=== PATIENT | female | born 1985 | race Caucasian/White ===

== ENCOUNTER 2017-02-23 16:53 | Emergency (ER) | payer MEDICAID ==
[~2017-02-23] VITALS: Ht 165.1 cm; Wt 91.2 kg
[~2017-02-23 16:53] MED LIST: AMOX1TAB64 PO; CEFU250T PO; DOCU-30 PO; HYDR-3307 PO
[2017-02-23] MEDS ORDERED: PROPARACAINE OPHTH 0.5%, 15ML ONE ×3 (17:07→17:50)
[2017-02-23] MEDS ORDERED: FLUORESCEIN OPHTHALMIC 1 MG STRIP ONE ×3 (17:07→17:51)
[2017-02-23] MEDS ORDERED: FLUORESCEIN OPHTHALMIC 1 MG STRIP EACHEYE ONE (17:30)
[2017-02-23] MEDS ORDERED: OXYcodone/APAP 5/325MG TABLET PO ONE (17:30)
[2017-02-23] MEDS ORDERED: ONDANSETRON ODT 4 MG PO ONE (17:30)
[2017-02-23] MEDS ORDERED: PROPARACAINE OPHTH 0.5%, 15ML EACHEYE ONE (17:30)
[2017-02-23 19:01] LABS: PATH.CAST-FLAG NOT PRESENT; SPERM-FLAG NOT PRESENT; SRC-FLAG NOT PRESENT; XTAL-FLAG NOT PRESENT; YLC-FLAG NOT PRESENT
[2017-02-23 19:31] VITALS: BP 117/58
== END 2017-02-23 19:32 | disposition home or self-care (01) ==
LOC: ED 18:50
DX: O23.12 Infections of bladder in pregnancy, second trimester (principal); H18.823 Corneal disorder due to contact lens, bilateral; Z3A.22 22 weeks gestation of pregnancy; X58.XXXA Exposure to other specified factors, initial encounter; Y93.89 Activity, other specified; Y99.8 Other external cause status; Y92.009 Unspecified place in unspecified non-institutional (private) residence as the place of occurrence of the external cause
CPT/HCPCS: 81001; 87077; 87086; 87186; 99284

== ENCOUNTER 2017-02-24 19:01 | Emergency (ER) | payer MEDICAID ==
[~2017-02-24] VITALS: Ht 165.1 cm; Wt 90.3 kg
[2017-02-24] MEDS ORDERED: PROPARACAINE OPHTH 0.5%, 15ML ONE (19:39)
[2017-02-24] MEDS ORDERED: FLUORESCEIN OPHTHALMIC 1 MG STRIP ONE (19:39)
[2017-02-24 20:12] VITALS: BP 115/74
== END 2017-02-24 20:15 | disposition home or self-care (01) ==
LOC: ED 19:30
DX: S05.02XD Injury of conjunctiva and corneal abrasion without foreign body, left eye, subsequent encounter (principal); S05.01XD Injury of conjunctiva and corneal abrasion without foreign body, right eye, subsequent encounter; X58.XXXD Exposure to other specified factors, subsequent encounter
CPT/HCPCS: 99283

== ENCOUNTER 2017-02-25 21:07 | Emergency (ER) | payer MEDICAID ==
[~2017-02-25] VITALS: Ht 165.1 cm; Wt 91.0 kg
[2017-02-25] MEDS ORDERED: PROPARACAINE OPHTH 0.5%, 15ML ONE (21:22)
[2017-02-25] MEDS ORDERED: FLUORESCEIN OPHTHALMIC 1 MG STRIP ONE (21:24)
[2017-02-25 22:30] VITALS: BP 126/79
== END 2017-02-25 22:51 | disposition home or self-care (01) ==
LOC: ED 21:40
DX: H18.823 Corneal disorder due to contact lens, bilateral (principal)
CPT/HCPCS: 99283

== ENCOUNTER 2017-03-23 15:15 | Emergency (ER) | payer MEDICAID ==
[~2017-03-23] VITALS: Ht 165.1 cm; Wt 93.6 kg
[2017-03-23 15:16] VITALS: BP 103/65
== END 2017-03-23 16:12 | disposition home or self-care (01) ==
LOC: ED 16:10
DX: H66.001 Acute suppurative otitis media without spontaneous rupture of ear drum, right ear (principal); H72.90 Unspecified perforation of tympanic membrane, unspecified ear
CPT/HCPCS: 99283

== ENCOUNTER 2017-06-17 00:23 | Outpatient (CLI) | payer MEDICAID ==
[~2017-06-17] VITALS: Ht 165.1 cm; Wt 91.0 kg
[2017-06-17 00:46] VITALS: BP 123/70
== END 2017-06-17 01:25 | disposition home or self-care (01) ==
LOC: LDOP 00:23
PROVIDERS: ATTEND Student in an Organized Health Care Education/Training Program
DX: O26.893 Other specified pregnancy related conditions, third trimester (principal); R10.9 Unspecified abdominal pain; Z3A.37 37 weeks gestation of pregnancy
CPT/HCPCS: 59025; 99201; G0463

== ENCOUNTER 2017-06-27 01:11 | Inpatient (IN) | payer MEDICAID ==
[~2017-06-27] VITALS: Ht 166.4 cm; Wt 95.0 kg
[~2017-06-27 01:11] MED LIST changes: +DOCU-131 PO; -DOCU-30 PO
[2017-06-27] MEDS ORDERED: FENTANYL PF 100 MCG/2ML ONE (01:32)
[2017-06-27] MEDS ORDERED: FENTANYL/BUPIV./NS/PF 250 ML EPIDCONT ONE (01:51)
[2017-06-27] MEDS ORDERED: LIDOCAINE/PF 1.5%-EPI 1:200K, 30ML ONE (01:57)
[2017-06-27] MEDS ORDERED: OXYTOCIN 30U/ 0.9% NaCL 500ML 500 ML ONE (04:29)
[2017-06-27] MEDS ORDERED: DOCUSATE 100 MG CAPSULE ONE (07:53)
[2017-06-27] MEDS ORDERED: IBUPROFEN 600 MG TABLET ONE (07:54)
[2017-06-27] MEDS ORDERED: PRENATAL VIT/IRON/FA 1 EACH TABLET ONE (07:54)
[2017-06-27] MEDS ORDERED: PLEASE ENTER HEIGHT AND WEIGHT MC SCH (08:30)
[2017-06-27] MEDS: OXYTOCIN 30U/ 0.9% NaCL 500ML 500 ML IV SCH ×2 (11:32→21:32)
[2017-06-27 11:47] LABS: HEMOGLOBIN 11.1 g/dL (11.7-16.4); WHITE BLOOD COUNT 14.9 x10^3/uL (3.4-10)
[2017-06-27 12:00] VITALS: BP 120/71
[2017-06-27] MEDS ORDERED: METHYLERGONOVINE 0.2 MG/ML IM PRN (12:00)
[2017-06-27] MEDS ORDERED: HYDROcodone/APAP 5/325 TABLET PO PRN (12:00)
[2017-06-27] MEDS ORDERED: CALCIUM CARBONATE 500 MG TAB.CHEW PO PRN (12:00)
[2017-06-27] MEDS ORDERED: MISOPROSTOL 200 MCG TABLET PR PRN (12:00)
[2017-06-27] MEDS ORDERED: DOCUSATE 100 MG CAPSULE PO PRN (12:00)
[2017-06-27] MEDS ORDERED: CARBOPROST TROMETHAMINE 250 MCG/ML, 1ML IM PRN (12:00)
[2017-06-27] MEDS ORDERED: HYDROcodone/APAP 5/325 TABLET ONE (12:00)
[2017-06-27] MEDS ORDERED: METOCLOPRAMIDE 5 MG/ML, 2ML IV PRN (12:00)
[2017-06-27] MEDS ORDERED: MISOPROSTOL 200 MCG TABLET PO PRN (12:00)
[2017-06-27] MEDS ORDERED: ONDANSETRON 2MG/ML, 2ML IV PRN (12:00)
[2017-06-27] MEDS ORDERED: MISOPROSTOL 200 MCG TABLET SL PRN (12:00)
[2017-06-27] MEDS ORDERED: BISACODYL 10 MG SUPP PR PRN (12:00)
[2017-06-27] MEDS: PRENATAL VIT/IRON/FA 1 EACH TABLET PO SCH (12:00)
[2017-06-27] MEDS ORDERED: ACETAMINOPHEN 325 MG TABLET PO PRN (12:00)
[2017-06-27] MEDS ORDERED: GLYCERIN ADULT SUPP PR PRN (12:00)
[2017-06-27] MEDS: HYDROcodone/APAP 5/325 TABLET PO PRN ×4 (12:04→20:38)
[2017-06-27 14:26] LABS: HEMATOCRIT 31.8 % (34.6-47.8); HEMOGLOBIN 10.6 g/dL (11.7-16.4); WHITE BLOOD COUNT 12.3 x10^3/uL (3.4-10)
[2017-06-27] MEDS: IBUPROFEN 600 MG TABLET PO PRN ×2 (15:16→21:29)
[2017-06-27 16:50] VITALS: BP 113/74
[2017-06-28] MEDS: HYDROcodone/APAP 5/325 TABLET PO PRN ×3 (00:31→09:55)
[2017-06-28] MEDS: IBUPROFEN 600 MG TABLET PO PRN ×2 (03:36→09:55)
[2017-06-28 06:59] LABS: HEMATOCRIT 34.6 % (34.6-47.8); HEMOGLOBIN 11.3 g/dL (11.7-16.4); WHITE BLOOD COUNT 12.4 x10^3/uL (3.4-10)
[2017-06-28] MEDS: OXYTOCIN 30U/ 0.9% NaCL 500ML 500 ML IV SCH (07:32)
[2017-06-28 08:10] VITALS: BP 105/70
[2017-06-28] MEDS: PRENATAL VIT/IRON/FA 1 EACH TABLET PO SCH (09:14)
[2017-06-28] MEDS ORDERED: HYDR-3240 PO (10:35)
[2017-06-28] MEDS ORDERED: IBUP-1222 PO (10:37)
[2017-06-28] MEDS ORDERED: DOCU-131 PO (10:38)
== END 2017-06-28 12:12 | disposition home or self-care (01) | DRG 775 ==
LOC: LDIP 01:11 → 2NW 07:28
PROVIDERS: ADMIT Obstetrics & Gynecology; ATTEND Obstetrics & Gynecology
PROC: 10E0XZZ Delivery of Products of Conception, External Approach (ICD-10-PCS; principal; 2017-06-27)
PROC: 3E0S3CZ (ICD-10-PCS; 2017-06-27)
PROC: 00HU33Z Insertion of Infusion Device into Spinal Canal, Percutaneous Approach (ICD-10-PCS; 2017-06-27)
DX: O69.81X0 Labor and delivery complicated by cord around neck, without compression, not applicable or unspecified (principal); O77.0 Labor and delivery complicated by meconium in amniotic fluid; O76 Abnormality in fetal heart rate and rhythm complicating labor and delivery; Z3A.38 38 weeks gestation of pregnancy; Z37.0 Single live birth; O09.43 Supervision of pregnancy with grand multiparity, third trimester
CPT/HCPCS: 36415; 82803; 85025; 85027; 86850; 86900

== ENCOUNTER 2017-09-23 17:46 | Emergency (ER) | payer MEDICAID ==
[~2017-09-23] VITALS: Ht 165.1 cm; Wt 93.8 kg
[~2017-09-23 17:46] MED LIST changes: +HYDR-3240 PO; +IBUP-1222 PO
[2017-09-23 17:50] VITALS: BP 114/76
== END 2017-09-23 18:47 | disposition home or self-care (01) ==
LOC: ED 18:02
DX: H66.011 Acute suppurative otitis media with spontaneous rupture of ear drum, right ear (principal); Z90.49 Acquired absence of other specified parts of digestive tract
CPT/HCPCS: 99283

== ENCOUNTER 2017-10-06 22:42 | Emergency (ER) | payer MEDICAID ==
[~2017-10-06] VITALS: Ht 165.1 cm; Wt 96.8 kg
[2017-10-06 22:44] VITALS: BP 110/75
== END 2017-10-06 23:29 | disposition home or self-care (01) ==
LOC: ED 22:59
DX: H60.311 Diffuse otitis externa, right ear (principal); H60.11 Cellulitis of right external ear; H66.001 Acute suppurative otitis media without spontaneous rupture of ear drum, right ear; Z90.49 Acquired absence of other specified parts of digestive tract
CPT/HCPCS: 99283

== ENCOUNTER 2018-02-27 20:05 | Emergency (ER) | payer MEDICAID ==
[~2018-02-27] VITALS: Ht 165.1 cm; Wt 93.7 kg
[2018-02-27 20:07] VITALS: BP 122/74
[2018-02-27 20:37] LABS: BASOPHILS % (AUTO) 1 % (0-1); EOSINOPHILS # (AUTO) 0.06 x10^3/uL (0-0.4); EOSINOPHILS % (AUTO) 1 % (1-7); LYMPHOCYTES # (AUTO) 2.98 x10^3/uL (1-3.4); LYMPHOCYTES % (AUTO) 22 % (22-44); MD NO; MEAN CORPUSCULAR HEMOGLOBIN 30.9 pg (27.0-34.8); MEAN CORPUSCULAR HGB CONC 33.9 g/dL (32.4-35.8); MEAN CORPUSCULAR VOLUME 90.9 fL (80-100); MEAN PLATELET VOLUME 8.1 fL (7.4-10.4); MONOCYTES # (AUTO) 0.71 x10^3/uL (0.2-0.8); MONOCYTES % (AUTO) 5 % (2-9); NEUTROPHILS # (AUTO) 9.95 x10^3/uL (1.8-6.8); NEUTROPHILS % (AUTO) 72 % (42-75); PLATELET COUNT 369 x10^3/uL (130-400); RED BLOOD COUNT 4.57 x10^6/uL (3.82-5.3); RED CELL DISTRIBUTION WIDTH 14.1 % (9.6-15.2)
[2018-02-27 20:41] LABS: ALANINE AMINOTRANSFERASE 18 U/L (12-78); ALBUMIN 3.4 g/dL (3.4-5.0); ANION GAP 13 mmol/L (5-15); CALCIUM 8.5 mg/dL (8.5-10.1); CHLORIDE 107 mmol/L (98-107); CREATININE 0.76 mg/dL (0.55-1.02)
[2018-02-27 20:58] LABS: ALKALINE PHOSPHATASE 109 U/L (45-117); BILIRUBIN,TOTAL 0.3 mg/dL (0.2-1.0); TOTAL PROTEIN 7.8 g/dL (6.4-8.2)
[2018-02-27 21:13] LABS: CULTURE INDICATED? YES; MICROSCOPIC INDICATED
== END 2018-02-27 22:22 | disposition home or self-care (01) ==
LOC: ED 22:03
DX: O20.0 Threatened abortion (principal); Z3A.09 9 weeks gestation of pregnancy; Z32.01 Encounter for pregnancy test, result positive
CPT/HCPCS: 36415; 76830; 80053; 81001; 84702; 85025; 87077; 87086; 87186; 99285